=== PATIENT | male | born 1975 | race Caucasian/White ===

== ENCOUNTER 2017-03-02 16:30 | Observation (INO) | payer OTHER ==
[~2017-03-02] VITALS: Ht 182.9 cm; Wt 128.9 kg
--- NOTE | ~2017-03-02 | CON ---
PATIENT'S NAME: ELAN GARZA [facility] AGE: 41 Y [address] ROOM: [address] [address] LOCATION: [facility] [place] ADMIT DATE: 03/02/2017 Consultation DISCHARGE DATE: FAMILY PHYSICIAN: Adrian Knight MD ATTENDING PHYSICIAN: Saul Howe DATE OF CONSULTATION: 03/02/2017 REFERRING PHYSICIAN: YESSENIA CARRASCO MD CHIEF COMPLAINT: Left flank pain. HISTORY OF PRESENT ILLNESS: The patient is a pleasant 41-year-old male who had presented earlier in the week through his primary care provider with complaints of left flank pain. He had underwent a urinalysis at his primary care provider's office on 02/27/2017 with the findings including red blood cells on microscopy, but negative nitrites and negative for leukocyte esterase. At that point, it was decided that should the patient have any worsening pain for him to undergo a CT scan or refer to Urology. He does have a history of nephrolithiasis and had seen Dr. Almendarez in the clinic on 02/21/2016. He had previously underwent a CT scan on 12/31/2015 with findings including a 5 mm nonobstructive left lower pole renal stone. At that time, Dr. Almendarez discussed the treatment options with the patient and it was decided to proceed with observation. The patient continued this week having significant left flank pain and he ultimately underwent a CT scan of his abdomen and pelvis today with findings including a 1.1 cm stone within the proximal left ureter. Given significant pain, but also slightly elevated serum creatinine level at 1.8, the patient's primary care provider admitted him for observation to the hospital. He underwent repeat blood work including a white blood cell count which was 8.8 and serum creatinine level of 1.9. His urinalysis is still pending. The patient did report some associated nausea, but no vomiting with the pain. He denies any fevers or chills. His pain is primarily located in his left lower flank. He has denied any dysuria as well as no gross hematuria. He has been having regular bowel movements. The patient has no further questions or concerns at this time. PAST MEDICAL HISTORY: 1. History of Natasha's thyroiditis. 2. Anxiety. 3. Hyperlipidemia. 4. Hypertension. PAST SURGICAL HISTORY: Tonsillectomy (2005). PATIENT'S NAME: ELAN GARZA [facility] AGE: 41 Y [address] ROOM: [place] [address] LOCATION: [facility] [place] ADMIT DATE: 03/02/2017 Consultation DISCHARGE DATE: FAMILY PHYSICIAN: Adrian Knight MD ATTENDING PHYSICIAN: Saul Howe FAMILY HISTORY: The patient denies any known family history of genitourinary abnormalities or malignancy. SOCIAL HISTORY: The patient denies any tobacco use, but does drink alcohol on occasion. ALLERGIES: NO KNOWN DRUG ALLERGIES. MEDICATIONS: See hospitalization medication reconciliation. REVIEW OF SYSTEMS: A full 10+ point review of systems was performed with pertinent positive and negative findings including history of present illness. He otherwise has denied any skin rash, no cough or shortness of breath, and no chest pain. PHYSICAL EXAMINATION: VITAL SIGNS: The patient's height is 70.5 inches and his weight is 286 pounds. CONSTITUTIONAL: No acute distress. The patient is awake and oriented. HEENT: Extraocular muscles intact. Mucous membranes moist. No drainage per ears and nose. CARDIAC: Good peripheral perfusion. RESPIRATORY: No audible wheezing. ABDOMEN: Soft, nontender, nondistended. He does have some left lower flank discomfort with palpation. MUSCULOSKELETAL: Moves all extremities. PSYCHIATRIC: Normal affect. Did not answers questions appropriately. HEMATOLOGIC: No bruising or active sites of bleeding. IMAGING: I personally reviewed his images from recent CT scan consistent with findings noted above in history of present illness. IMPRESSION: Left proximal 11 mm ureteral calculus. PLAN: I had a long discussion today with the patient regarding his treatment options. He has not been doing well with a trial of stone passage with continued significant pain. Also given the stone size of greater than 1 cm, we discussed that he would not have a very high probability of passing the stone on his own. We discussed the risks, benefits, indications, and PATIENT'S NAME: ELAN GARZA [facility] AGE: 41 Y [address] ROOM: [place] [address] LOCATION: [facility] [place] ADMIT DATE: 03/02/2017 Consultation DISCHARGE DATE: FAMILY PHYSICIAN: Adrian Knight MD ATTENDING PHYSICIAN: Saul Howe alternatives. At this point, the patient would like to proceed with cystoscopy, manipulation of left ureteral calculus, and placement of indwelling left ureteral stent. We will then plan to bring him back in approximately 10-14 days following stent placement for definitive treatment of the stone with left extracorporeal shockwave lithotripsy which will be scheduled for him as an outpatient. His questions and concerns were addressed and he has no further at this time. YESSENIA CARRASCO MD GP/marcus /[id number] d: 03/03/17 0024 t: 03/04/17 0941, CONSULTATION REPORT
--- NOTE | ~2017-03-02 | HP ---
PATIENT'S NAME: ELAN GARZA [facility] AGE: 41 Y [address] ROOM: [place] [address] LOCATION: [facility] ADMIT DATE: 03/02/2017 History & Physical DISCHARGE DATE: FAMILY PHYSICIAN: Adrian Knight MD ATTENDING PHYSICIAN: Brayden Trotter DATE OF SERVICE: CHIEF COMPLAINT: Left ureterolithiasis. HISTORY OF PRESENTING ILLNESS: This is a 41-year-old white male with previous history of hypertension, hyperlipidemia, hypothyroidism, and nephrolithiasis, was sent to [facility] today with left flank pain which began on Sunday. He states he has had kidney stones in the past and this feels exactly like it had before. He states his symptoms usually only last for a day or two and go away but these have persisted. Finally, today his urged him to come to the clinic for evaluation. CT scan was done and this showed an obstructing stone. Urology was consulted and it was requested that he be admitted here for definitive evaluation and management. He denies fever, chills, or sweats. He denies headaches, dizziness, or lightheadedness. No chest pain, shortness of breath, or any other abdominal pain. He has been stooling normally and voiding without any difficulties. Please see the separate H and P dictated by Macie Robles MD, Resident. PAST MEDICAL HISTORY: ALLERGIES: NO KNOWN DRUG ALLERGIES. ILLNESSES: 1. Hypertension. 2. Hyperlipidemia. 3. Hypothyroidism. 4. Obesity. 5. Depression/anxiety. 6. Peripheral neuropathy. 7. Nephrolithiasis. CURRENT MEDICATIONS: 1. Levothyroxine 112 mcg p.o. daily. 2. Metoprolol 25 mg p.o. daily. 3. Atorvastatin 40 mg p.o. daily. PATIENT'S NAME: ELAN GARZA [facility] AGE: 41 Y [address] ROOM: [place] [id number] LOCATION: [facility] ADMIT DATE: 03/02/2017 History & Physical DISCHARGE DATE: FAMILY PHYSICIAN: Adrian Knight MD ATTENDING PHYSICIAN: Brayden Trotter 4. Paxil 30 mg p.o. daily. 5. Gabapentin 100 mg p.o. b.i.d. 6. Probiotic daily. 7. Multivitamin daily. FAMILY HISTORY: Significant for hypertension in his father, otherwise, noncontributory. SOCIAL HISTORY: He is . There is no significant history of tobacco or alcohol use. REVIEW OF SYSTEMS: As per HPI. All other organ systems reviewed and are negative. OBJECTIVE: VITAL SIGNS: Temperature 96.5, pulse 100, respirations 18, blood pressure 126/74. GENERAL: He is very pleasant, cooperative, seated in bed, in no acute distress. SKIN: Supple, pink, warm, dry. No obvious rashes. HEENT: Otherwise, normocephalic. Sclerae, nonicteric. Pupils equal, round, and reactive to light and accommodation. Extraocular movements appear intact. Nasal turbinates normal in appearance. Oropharynx clear. Mucous membranes are pink and moist. NECK: Supple. Plethoric. No masses or adenopathy. No thyromegaly. No JVD. No carotid bruits are heard. CHEST: Chest wall is symmetrical. Lungs are clear bilaterally. No wheezes or crackles are heard. HEART: Regular without murmurs. ABDOMEN: Soft and obese. Nontender. Bowel sounds present. No mass or hepatosplenomegaly. He does have some subjective tenderness to manipulation about the left flank and there is positive CVA tenderness on that side. : Not done. RECTAL: Not done. EXTREMITIES: Display trace pitting edema. No cyanosis. NEUROLOGIC: No focal deficits. LABORATORY AND X-RAY DATA: CBC showed a white blood cell count 8.8, hemoglobin is 13.8, hematocrit 39.6, platelets 234. Urinalysis was significant for 1+ protein, 3+ blood. CT scan of the abdomen and pelvis per renal stone protocol shows an obstructing 11 mm stone in the proximal left ureter. Diverticulosis is noted, also a small hepatic cyst. ASSESSMENT AND PLAN: PATIENT'S NAME: ELAN GARZA [facility] AGE: 41 Y [address] ROOM: [address] [address] LOCATION: [facility] ADMIT DATE: 03/02/2017 History & Physical DISCHARGE DATE: FAMILY PHYSICIAN: Adrian Knight MD ATTENDING PHYSICIAN: Brayden Trotter 1. Left ureterolithiasis with obstruction. The patient has been admitted for observation. Continue with supportive cares including IV fluids and symptomatic treatment with Dilaudid for relief of pain, Zofran for relief of nausea as outlined in the orders by Macie Robles MD. We will continue to follow along and provide additional support as necessary. 2. Hypertension, appears to be adequately controlled. We will monitor trend and make adjustments as necessary. 3. Hyperlipidemia, historically controlled, on statin therapy. Plan clinical followup with his primary care provider. 4. Hypothyroidism, appears to be adequately compensated and replaced with levothyroxine. 5. Deep venous thrombosis prophylaxis. We will follow the venous thromboembolism protocol. BRAYDEN J MD CHRIS TROTTER/modhermila /[id number] D: [id number] T: [id number] HISTORY & PHYSICAL
--- NOTE | ~2017-03-02 | DS ---
PATIENT'S NAME: ELAN GARZA [facility] AGE: 41 Y [address] ROOM: [place] [address] [place] [facility] [place] DATE: 03/02/2017 Discharge Summary DISCHARGE DATE: 03/03/2017 FAMILY PHYSICIAN: Adrian Knight MD ATTENDING PHYSICIAN: Saul Howe DISCHARGE DIAGNOSES: 1. Left ureterolithiasis with obstruction. 2. Hypertension. 3. Hyperlipidemia. 4. Hypothyroidism, history of Natasha thyroiditis. 5. History of depression, complicated by anxiety. 6. Obesity. PROCEDURES: He had a left ureteral stent placed by Dr. Kevin. REASON FOR ADMISSION: Left flank pain, which began on Sunday. PHYSICAL EXAMINATION: VITAL SIGNS: Today, BP was 166/86, pulse 55 and regular, respirations 12, temp was 97.7. CHEST: Clear. No CVA tenderness. HEART: Regular rate and rhythm without murmur. ABDOMEN: Belly, soft, nontender without HSM or masses. EXTREMITIES: Ankles are nonswollen. ASSESSMENT: Status post stent by Dr. Kevin, doing well. PLAN: He will be discharged on medications per nursing medication reconciliation. Activity will be ad nakul and restrictions per Urology. Diet will be ad nakul and followup will be with Dr. Kevin on his schedule. I do not have a followup time for him at this time. I did review Dr. Robles's note and the medications that she had signed off on, and I agree with her assessment and plan. Note that discharge took less than a half hour. ADA GAMA MD CCStanley/modl PATIENT'S NAME: ELAN GARZA [facility] AGE: 41 Y [address] ROOM: [place] [address] [place] [facility] [place] DATE: 03/02/2017 Discharge Summary DISCHARGE DATE: 03/03/2017 FAMILY PHYSICIAN: Adrian Knight MD ATTENDING PHYSICIAN: Saul Howe /[id number] d: 03/03/172103 t: 03/06/172120, DISCHARGE SUMMARY
--- NOTE | ~2017-03-02 | OR ---
PATIENT'S NAME: ELAN GARZA [facility] AGE: 41 Y [address] ROOM: [address] [address] LOCATION: [facility] [place] ADMIT DATE: 03/02/2017 OR/Procedure Report DISCHARGE DATE: FAMILY PHYSICIAN: Adrian Knight MD ATTENDING PHYSICIAN: Saul Howe SURGEON: Yessenia Kevin MD FOSTER CARE WORKER: None. DATE OF PROCEDURE: 03/03/2017 PREOPERATIVE DIAGNOSIS: Left proximal ureteral calculus. POSTOPERATIVE DIAGNOSIS: Left proximal ureteral calculus. ANESTHESIA ADMINISTERED: Monitored anesthesia care. OPERATIVE PROCEDURES: 1. Cystoscopy with manipulation (without removal) of left proximal ureteral calculus. 2. Cystoscopy with placement of indwelling left ureteral stent. INDICATIONS FOR PROCEDURE: The patient is a pleasant 41-year-old male who presented to his primary care provider's office earlier in the week with left flank pain. His pain did get more severe and ultimately he underwent a CT scan, which demonstrated an 11 mm left proximal ureteral calculus. He was not doing well with pain control and was admitted overnight to the hospital. The patient was explained the risks, benefits, indications, and alternatives to the above procedure and wished to proceed and consented freely. DESCRIPTION OF OPERATION: The patient was brought back to the operating room, where he was placed on the OR table in the supine position. A surgical time- out was called where patient identification, surgical site, and procedure was then verified. We also did verify the patient received an IV antibiotic within an hour of beginning the procedure. The patient was then moved and placed into a low lithotomy position where his genital area was then prepped and draped in the usual sterile fashion. I began by advancing the rigid cystoscope easily into the patient's urinary bladder. His anterior urethra was within normal limits. His posterior urethra was notable for some mild bilobar hyperplasia of the prostate. Upon entering to his bladder, full espana cystoscopy was performed. His bladder was negative for any bladder tumors, cellules, or diverticula. His ureteral orifices were noted to be in their orthotopic location. I then carefully advanced a Sensor guidewire, cannulating the patient's left ureteral orifice. I was able to navigate the wire up to the level of the proximal left ureteral stone. Then, over the wire, I advanced an open-ended five-Cameroonian ureteral catheter up to the level of the proximal ureteral stone. I was then able to successfully manipulate PATIENT'S NAME: ELAN GARZA [facility] AGE: 41 Y [address] ROOM: [address] [address] LOCATION: [facility] [place] ADMIT DATE: 03/02/2017 OR/Procedure Report DISCHARGE DATE: FAMILY PHYSICIAN: Adrian Knight MD ATTENDING PHYSICIAN: Saul Howe the stone back up into the left mid-kidney using a saline flush via the open- ended ureteral catheter. I then readvanced the Sensor guidewire back through the open-ended catheter and removed the catheter leaving the wire in place. I then advanced a 4.8-Cameroonian multi-length ureteral stent over the wire, deploying it, noting a good curl fluoroscopically in the patient's left renal pelvis as well as a good curl visually in the patient's bladder. I then emptied the patient's bladder and removed the cystoscope. The patient did tolerate the procedure well. The patient was then taken out of the lithotomy position where he was then awoken from monitored anesthesia care, transferred to the recovery bed, and transported to the recovery room in good in good condition. COMPLICATIONS: None. DRAINS: Indwelling 4.8-Cameroonian multi-length left ureteral stent. FOLLOWUP PLAN: We will tentatively plan to see the patient back for followup on March 13, 2017, for left extracorporeal shockwave lithotripsy as well as possible stent removal at that time. YESSENIA KEVIN MD GP/modl /[id number] CC: Adrian Knight MD d: 03/03/17 1201 t: 03/04/17 0944, OPERATIVE SUMMARY
[2017-03-02 18:32] LABS: BASOPHIL # 0.1 K/uL (0.0-0.2); BASOPHIL % 0.7 %; EOSINOPHIL # 0.2 K/uL (0.0-0.5); EOSINOPHIL % 2.3 %; HEMATOCRIT 39.6 % (37.0-53.0); HEMOGLOBIN 13.8 g/dL (12.0-17.0); IMMATURE GRANULOCYTE % 0.3 %; LYMPHOCYTE # 2.2 K/uL (0.8-4.0); MCH 28.6 pg (27.0-34.0); MCHC 34.8 gm/dL (32.0-36.5); MONOCYTE # 0.9 K/uL (0.0-1.0); MONOCYTE % 10.2 %; MPV 10.2 fl (9.4-12.4); NEUTROPHIL # (ANC) 5.4 K/uL (1.4-9.0); NEUTROPHIL % 61.5 %; NRBC % 0 /100WBC (0-0.00); PLATELET COUNT 234 K/uL (150-450); RBC 4.83 M/uL (4.00-6.00); RDW-CV 12.3 % (11.9-14.6); WBC 8.8 K/uL (4.0-11.0)
[2017-03-02 18:50] LABS: ANION GAP 10.1 (10.0-19.0); CALCIUM 8.7 mg/dL (8.5-10.5); CREATININE 1.9 mg/dL (0.6-1.3); POTASSIUM 4.1 mMol/L (3.7-5.1)
[2017-03-02] MEDS ORDERED: LOPRESSOR25 MG PO (18:54)
[2017-03-02] MEDS ORDERED: LEVOTHROID (S112 MCG PO (18:54)
[2017-03-02] MEDS ORDERED: PAXIL30 MG PO (18:55)
[2017-03-02] MEDS ORDERED: LIPITOR40 MG PO (18:55)
[2017-03-02] MEDS ORDERED: CENTRUM MEN'S1 EACH PO (18:58)
[2017-03-02] MEDS ORDERED: ADVIL200 MG PO (18:58)
[2017-03-02 21:26] LABS: BILIRUBIN URINE NEGATIVE (NEGATIVE); BLOOD URINE NEGATIVE /UL (NEGATIVE); COLOR URINE YELLOW (YELLOW); GLUCOSE URINE NEGATIVE (NEGATIVE); KETONE URINE NEGATIVE (NEGATIVE); LEUKOCYTES URINE NEGATIVE /UL (NEGATIVE); NITRITE URINE NEGATIVE (NEGATIVE); PROTEIN URINE NEGATIVE (NEGATIVE); UROBILINOGEN URINE NORMAL (NORMAL)
[2017-03-02 21:33] LABS: TURBIDITY URINE CLEAR (CLEAR)
[2017-03-03] MEDS ORDERED: COLACE100 MG PO (14:34)
[2017-03-03] MEDS ORDERED: NORCO 5-325 TA1 EACH PO (14:37)
[2017-03-03] MEDS ORDERED: OXYBUTYNIN CHLOR5 M1 PO (14:38)
== END 2017-03-03 15:00 | disposition disaster alternative care site (69) ==
LOC: GMSU 16:50
PROVIDERS: Family Medicine; ADMIT Family Medicine
PROC: 0T778DZ Dilation of Left Ureter with Intraluminal Device, Via Natural or Artificial Opening Endoscopic (ICD-10-PCS; principal; 2017-03-03)
DX: N20.1 Calculus of ureter (principal); I10 Essential (primary) hypertension; E78.5 Hyperlipidemia, unspecified; E03.9 Hypothyroidism, unspecified; F32.9 Major depressive disorder, single episode, unspecified; F41.9 Anxiety disorder, unspecified; G62.9 Polyneuropathy, unspecified; E66.9 Obesity, unspecified; Z68.41 Body mass index [BMI] 40.0-44.9, adult; Z79.899 Other long term (current) drug therapy; Z98.890 Other specified postprocedural states
CPT/HCPCS: C1769; C2617; G0378; G0379; J0690; J1170; J3010; J7030

== ENCOUNTER → 2017-03-02 | Outpatient (CLI) | payer OTHER ==
[~2017-03-02] MED LIST: ADVIL200 MG PO; CENTRUM MEN'S1 EACH PO; COLACE100 MG PO; LEVOTHROID (S112 MCG PO; LIPITOR40 MG PO; LOPRESSOR25 MG PO; NORCO 5-325 TA1 EACH PO; OXYBUTYNIN CHLOR5 M1 PO; PAXIL30 MG PO
== END | disposition disaster alternative care site (69) ==
LOC: GRAD 14:06
DX: Z09 Encounter for follow-up examination after completed treatment for conditions other than malignant neoplasm (principal); N20.1 Calculus of ureter; K57.90 Diverticulosis of intestine, part unspecified, without perforation or abscess without bleeding; K76.89 Other specified diseases of liver; Z87.442 Personal history of urinary calculi

== ENCOUNTER → 2017-03-13 | Day surgery (SDC) | payer OTHER ==
[~2017-03-13] VITALS: Ht 182.9 cm; Wt 126.2 kg
--- NOTE | ~2017-03-13 | OR ---
PATIENT'S NAME: ELAN GARZA [facility] AGE: 41 Y [address] ROOM: [place] [address] [place] [facility] [place] ADMIT DATE: 03/13/2017 OR/Procedure Report DISCHARGE DATE: FAMILY PHYSICIAN: Adrian Knight MD ATTENDING PHYSICIAN: YESSENIA KEVIN SURGEON: Yessenia Kevin MD VENEER GRADER: None. DATE OF PROCEDURE: 03/13/2017 PREOPERATIVE DIAGNOSES: 1. Left nephrolithiasis. 2. Indwelling left ureteral stent. POSTOPERATIVE DIAGNOSES: 1. Left nephrolithiasis. 2. Indwelling left ureteral stent. PROCEDURE PERFORMED: 1. Left extracorporeal shockwave lithotripsy. 2. Cystoscopy with removal of indwelling left ureteral stent. ANESTHESIA ADMINISTERED: Monitored anesthesia care. INDICATIONS FOR PROCEDURE: The patient is a pleasant 41-year-old male who had recently presented with left flank pain and was found to have an 11 mm proximal left ureteral calculus. He had underwent initial cystoscopy with left ureteral stent placement and manipulation of ureteral calculus on March 03, 2017. He returns today for definitive treatment. He was explained the risks, benefits, indications, and alternatives to above procedure and wished proceed and consented freely. DESCRIPTION OF OPERATION: The patient was brought back to the operating room, where he was placed on the lithotripsy bed in the supine position. A surgical time-out was called where patient identification, surgical site, and procedure was then verified. We also did verify the patient received an IV Levaquin antibiotic within an hour of beginning the procedure. The patient was then kept in the supine position after he had underwent monitored anesthesia care. We then brought the renal calculus into focal point using fluoroscopy. We began performing shockwave lithotripsy starting at 14 kilovolts and working up sequentially to 24 kilovolts in energy. Approximately 3000 shocks were delivered to the stone and it did appear that we had nice fragmentation with fluoroscopic monitoring. I then opted to remove the stent. His genital area was then prepped and draped in the usual sterile fashion. I then carefully advanced a flexible cystoscope easily into the patient's urinary bladder. His anterior urethra was within normal limits. His posterior urethra was notable PATIENT'S NAME: ELAN GARZA [facility] AGE: 41 Y [address] ROOM: [place], [place] [address] [place] [facility] [place] ADMIT DATE: 03/13/2017 OR/Procedure Report DISCHARGE DATE: FAMILY PHYSICIAN: Adrian Knight MD ATTENDING PHYSICIAN: YESSENIA KEVIN for some mild bilobar hyperplasia of the prostate. Upon entering into his bladder, I did visualize the indwelling curl of the distal left ureteral stent. I then used the stent graspers to grab the distal curl and the stent was removed in its entirety without complication. The patient did tolerate the procedure well. The patient was then awoken from monitored anesthesia care where he was then transferred over to the recovery bed and transported to the recovery room in good condition. COMPLICATIONS: None. SPECIMENS: None. ESTIMATED BLOOD LOSS: Minimal. FOLLOWUP PLAN: We will plan to the patient back for followup in Urology Clinic in approximately 3 to 4 weeks with the plain film, KUB, and at that time, we will discuss stone prevention as well as consideration of a 24 hour urinalysis given the patient's history of recurrent nephrolithiasis. YESSENIA KEVIN MD GP/modl /[id number] CC: Adrian Knight MD d: 03/13/17 1801 t: 03/18/17 0938, OPERATIVE SUMMARY
== END | disposition disaster alternative care site (69) ==
LOC: GSDC 07:00
PROC: 0TF4XZZ Fragmentation in Left Kidney Pelvis, External Approach (ICD-10-PCS; principal; 2017-03-13)
PROC: 0TP98DZ Removal of Intraluminal Device from Ureter, Via Natural or Artificial Opening Endoscopic (ICD-10-PCS; 2017-03-13)
DX: N20.0 Calculus of kidney (principal); I10 Essential (primary) hypertension; E78.5 Hyperlipidemia, unspecified; F41.9 Anxiety disorder, unspecified; Z98.890 Other specified postprocedural states
CPT/HCPCS: J1956; J2001; J7120

== ENCOUNTER → 2017-04-06 | Outpatient (CLI) | payer OTHER | END | disposition disaster alternative care site (69) | LOC: GRAD 13:42 | DX: N20.0 Calculus of kidney (principal) ==